=== PATIENT | male | born 1995 | race Asian ===

== ENCOUNTER 2019-10-09 20:27 | Emergency (ER) | payer BC, SELFPAY ==
[2019-10-09 20:29] VITALS: BP 138/81; PULSE 124; RESP 18; TEMP 37.1; O2SAT 96
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
== END 2019-10-09 21:05 | disposition home or self-care (01) ==
PROVIDERS: Emergency Provider Emergency Medicine; PCP Family Medicine
DX: S01.81XA Laceration without foreign body of other part of head, initial encounter (principal); X99.9XXA Assault by unspecified sharp object, initial encounter; Y07.6 Multiple perpetrators of maltreatment and neglect
CPT/HCPCS: 12013; 90471

== ENCOUNTER 2019-10-16 09:44 | Emergency (ER) | payer BC, SELFPAY ==
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
[2019-10-16 09:57] VITALS: BP 143/98; PULSE 81; RESP 18; TEMP 36.9; O2SAT 95
== END 2019-10-16 10:16 | disposition home or self-care (01) ==
LOC: ER 10:14
PROVIDERS: Emergency Provider Physician Assistant; PCP Nurse Practitioner Family
DX: S01.81XD Laceration without foreign body of other part of head, subsequent encounter (principal); X99.9XXA Assault by unspecified sharp object, initial encounter; Z48.02 Encounter for removal of sutures